=== PATIENT | female | born 1990 | race Caucasian/White ===

== ENCOUNTER 2018-12-07 06:26 | Day surgery (SDC) | payer OTHER ==
[~2018-12-07] VITALS: Ht 160 cm; Wt 97.3 kg
[2018-12-07] VITALS (17 sets, daily range): BP systolic 105–127; BP diastolic 67–80; PULSE 54–96; RESP 14–18; Ht 160 cm; Wt 97.3 kg
--- NOTE | 2018-12-07 09:46 | PREAC ---
Date/Time of Note Date/Time of Note DATE: 12/07/18 TIME: 09:45 Anesthesia Eval and Record Evaluation Time Pre-Procedure Interview DATE: 12/07/18 TIME: 09:45 Age 28 Sex female NPO: 8 hrs Preoperative diagnosis leg mass Planned procedure leg mass excision Past Medical History Past Medical History: Includes GI: Obesity, Morbid obesity Surgery & Anesthesia Issues No known issue Meds Anticoagulation: No Beta Paula within 24 hr: No Reason Beta Paula not given: Pt. not on B-Paula No Active Prescriptions or Reported Meds Current Medications Cefazolin Sodium/ Dextrose 50 ml @ 100 mls/hr PRE-OP ONCE IVPB ; Start 12/07/18 at 12:00; Stop 12/07/18 at 12:29 Sodium Chloride 1,000 ml @ 75 mls/hr [id number] IV Last administered on 12/07/18at 07:37; Admin Dose 75 MLS/HR; Start 12/07/18 at 12:00; Stop 12/08/18 at 01:19 Meds reviewed: Yes Allergies Coded Allergies: No Known Drug Allergies (Unverified Allergy, Unknown, 12/06/18) Allergies Reviewed: Yes Labs/Studies Labs Reviewed: Reviewed by anesthesiologist Result Diagram: 12/07/18 0725 12/07/1825 Laboratory Tests 12/07/18 07:25 test: Negative Pre-procedure Exam Last vitals Vital Signs Date Temp Pulse Resp B/P (MAP) Pulse Ox O2 O2 Flow FiO2 Time Delivery Rate 12/07/18 97.2 96 16 127/80 96 Room Air 07:25 (96) Airway: Adequate mouth opening, Adequate thyromental dist Mallampati: Mallampati IV Teeth: Normal Lung: Normal Heart: Normal ASA Physical Status ASA physical status: 2 Emergency: None Pre-operative Attestations Prior to commencing anesthesia and surgery, the patient was re-evaluated, there was verification of: *The patient's identity *The results of appropriate recent lab work and preoperative vital signs *The above evaluation not changing prior to induction *Anesthetic plan, risk benefits, alternative and complications discussed with patient/family; questions answered; patient/family understands, accepts and wishes to proceed. NIKKIE RIZZO DO Dec 07, 2018 09:46
[2018-12-07] MEDS ORDERED: PROPOFOL 20 ML ONE ×2 (09:56→10:17)
[2018-12-07] MEDS ORDERED: MIDAZOLAM 1 MG/ML 2 ML INJ ONE (09:56)
[2018-12-07] MEDS ORDERED: FENTAnyl 50 MCG/ML VIAL ONE (09:57)
[2018-12-07] MEDS ORDERED: HYDROmorphONE 1 MG/5 ML IV SYRINGE IV PRN ×2 (10:00)
[2018-12-07] MEDS ORDERED: LIDOCAINE 2% (SDV) 5 ML INJ ONE (10:17)
--- NOTE | 2018-12-07 10:26 | OPR ---
Date/Time of Note Date/Time of Note DATE: 12/07/18 TIME: 10:24 Operative Report Procedure Date: Dec 07, 2018 Preoperative Diagnosis right leg mass Postoperative Diagnosis right leg pigmented mass Operation/Procedure Performed 1. excision of right leg mass 4 cm mass 4 cm incision 2. localized adjacent tissue transfer with the use of skin flaps 8 sq cm defect of right leg 3. therapeutic injection fo subcutaneous local anesthesia Surgeon see signature line Blanket Inspector none Anesthesia Type: MAC Estimated Blood Loss: 0 - 10 ml's Transfusion none Specimen right leg mass Grafts/Implants none Complications none Pt Condition Post Procedure: stable Indications This is a 28-year-old female with a right leg pigmented lesion. She is concerned and wants excision of the lesion. Risks alternatives benefits and personal were discussed the patient. Patient expressed understanding consents to the operation. Procedure Description Patient is taken to the OR and prepped and draped in usual sterile fashion. Surgical time was performed. IV antibiotics given. Therapeutic subcutaneous local anesthesia was injected at the incision site around the lesion. Elliptica l incision was made with a 15 blade. Dissection with cautery skin onto the lesion and the lesion circumferentially excised. Good hemostasis status. Due to tissue defect localization to his transfer with use of skin flaps was performed. Multilayer closed with interrupted 0 Vicryl and skin madelyn. Dressing applied. Allison CARRERO Dec 07, 2018 10:26
[2018-12-07] MEDS ORDERED: IBUPROFEN 800 MG TAB PO ONE (10:30)
[2018-12-07] MEDS ORDERED: BUPIVACAINE 0.25% (MPF) 30 ML INJ INJ ONE (10:33)
[2018-12-07] MEDS ORDERED: LIDOCAINE 2% (MDV) 20 ML INJ INJ ONE (10:33)
[2018-12-07] MEDS ORDERED: SOD CHLORIDE 0.9% 1,000 ML IV SCH (12:00)
[2018-12-07] MEDS ORDERED: CEFAZOLIN 2 GM/50 ML (PMX) 50 ML IVPB ONE (12:00)
== END 2018-12-07 12:32 | disposition home or self-care (01) ==
LOC: SDS 06:26
PROVIDERS: ATTEND Surgery
DX: D03.71 Melanoma in situ of right lower limb, including hip (principal); E66.01 Morbid (severe) obesity due to excess calories; Z68.38 Body mass index [BMI] 38.0-38.9, adult
CPT/HCPCS: 14020; 80053; 84703; 85025; 85610; 85730; 88307; J0690; J2250; J3010; Z7512; Z7610